=== PATIENT | female | born 1970 | race American Indian/Alaskan Native ===

== ENCOUNTER 2016-10-25 12:43 | Emergency (ER) | payer OTHER ==
[2016-10-25 13:30] LABS: Basophils % (Auto) 1.2 % (0.0-1.8); Eosinophils % (Auto) 3.6 % (0.0-4.3); Hematocrit 39.6 % (30.3-42.9); Hemoglobin 13.2 gm/dl (10.1-14.3); Mean Corpuscular HGB Conc 33 % (30-34); Mean Corpuscular Hemoglobin 28 pg (28-32); Mean Corpuscular Volume 83 fl (79-97); Platelet Count 333 K/mm3 (140-440); Red Blood Count 4.76 M/mm3 (3.65-5.03); Red Cell Distribution Width 14.6 % (13.2-15.2); White Blood Count 5.5 K/mm3 (4.5-11.0)
[2016-10-25 13:34] LABS: INR 0.99 (0.87-1.13)
[2016-10-25 13:35] LABS: Partial Thromboplastin Time 33.8 Sec. (24.2-36.6)
[2016-10-25 13:56] LABS: Anion Gap 16 mmol/L; BUN/Creatinine Ratio 8.75; Blood Urea Nitrogen 7 mg/dL (7-17); Calcium 9.2 mg/dL (8.4-10.2); Carbon Dioxide 27 mmol/L (22-30); Chloride 102.3 mmol/L (98-107); Glucose 95 mg/dL (65-100); Potassium 4.2 mmol/L (3.6-5.0); Sodium 141 mmol/L (137-145)
--- NOTE | 2016-10-25 14:50 | Cat Scan Report ---
CT scan of the contrast: History: Left-sided numbness. Headaches and blurred vision. Findings: Ventricles are normal in size and midline in location. No evidence of acute ischemia, hemorrhage or mass. No extra-axial fluid collection. Normal brainstem and cerebellum. Normal sinuses and mastoid air cells. Impression: No acute intracranial abnormality.
[2016-10-25] MEDS ORDERED: BABY ASPIRIN PO ONE (19:58)
--- NOTE | 2016-10-25 20:27 | Emergency Department Report ---
HPI - General Chief Complaint: Neuro Symptoms/Deficit Time Seen by Provider: 10/25/16 19:42 - HPI HPI: This is a 46-year-old Afro-[place] female presents to the emergency department after waking up with some left-sided numbness to the upper and lower extremities that has been going on intermittently today but is also been going on intermittently over the past 2 months. Shortly after the patient presented to the emergency department, she says that the numbness went away but now she complains of some pain to the left upper shoulder. She denies any headache, vision change, slurred speech, problems with ambulation, chest pain, fever, nausea or vomiting. She denies any past medical history. She denies any history of MO, CVA, PE/DVT. She has not taken anything for symptoms. Presentation. No recent travel or sick contacts at home. She has a new primary care doctor that she is seeing in November. ED Past Medical Hx - Past Medical History Previous Medical History?: No - Surgical History Past Surgical History?: Yes Additional Surgical History: breast reduction - Social History Smoking Status: Never Smoker Substance Use Type: None ED Review of Systems ROS: Stated complaint: LFT SIDE NUMBNESS/HEADACHE Other details as noted in HPI Comment: All other systems reviewed and negative Constitutional: denies: chills, fever Eyes: denies: eye pain, eye discharge, vision change ENT: denies: ear pain, throat pain Respiratory: denies: cough, shortness of breath, wheezing Cardiovascular: denies: chest pain, palpitations Gastrointestinal: denies: abdominal pain, nausea, diarrhea Genitourinary: denies: urgency, dysuria, discharge Musculoskeletal: denies: back pain, joint swelling, arthralgia Skin: denies: rash, lesions Neurological: numbness, paresthesias. denies: weakness, abnormal gait, vertigo Physical Exam - Physical Exam Vital Signs: Vital Signs 10/25/16 12:49 Temperature 98.3 F Pulse Rate 66 Respiratory 18 Rate Blood Pressure 121/74 O2 Sat by Pulse 98 Oximetry Physical Exam: GENERAL: The patient is well-developed well-nourished. HEENT: Normocephalic. Atraumatic. Extraocular motions are intact. Patient has moist mucous membranes. Pupils equal reactive to light bilaterally. No nystagmus. Tongue is midline. NECK: Supple. Trachea is midline. CHEST/LUNGS: Clear to auscultation. There is no respiratory distress noted. HEART/CARDIOVASCULAR: Regular. There is no tachycardia. There is no gallop rub or murmur. ABDOMEN: Abdomen is soft, nontender. Patient has normal bowel sounds. There is no abdominal distention. SKIN: There is no rash. There is no edema. There is no diaphoresis. NEURO: The patient is awake, alert, and oriented. The patient is cooperative. The patient has no focal neurologic deficits. The patient has normal speech and gait. Cranial nerves II through XII grossly intact. No pronator drift. No dysmetria. MUSCULOSKELETAL: There is no deformity. Patient has some mild tenderness to palpation to the superior and posterior left shoulder along the trapezius muscle with some taut musculature. There is no limitation range of motion. There is no evidence of acute injury. Muscle strength 5 out of 5 upper and lower extremity bilaterally. Cap refill less than 2 seconds. Radial pulses +2 over 4 bilaterally. ED Course Vital Signs 10/25/16 12:49 Temperature 98.3 F Pulse Rate 66 Respiratory 18 Rate Blood Pressure 121/74 O2 Sat by Pulse 98 Oximetry ED Medical Decision Making - Lab Data Result diagrams: 10/25/16 13:10 10/25/16 13:10 - EKG Data -: EKG Interpreted by Ri EKG shows normal: sinus rhythm, axis, intervals, QRS complexes, ST-T waves Rate: normal - EKG Data When compared to previous EKG there are: previous EKG unavailable Interpretation: normal EKG - Radiology Data Radiology results: report reviewed CT of the head does not show any acute process including no hemorrhage, mass, shift, diffuse edema or skull fracture. - Medical Decision Making 46-year-old female presents to the emergency department with some transient left -sided numbness to the arm and leg that resolved and now some pain along the trapezius muscle of the left shoulder and neck. Patient has no focal, motor or sensory deficits in her cranial nerves are intact. A stroke scale on this patient right now is 0. Patient's labs were unremarkable including no signs of infection, electrolyte abnormalities, renal insufficiency, glucose abnormalities. Negative troponin. Urine drug screen is negative and the patient is not . CT of the head was done that did not show any bleed, shift, mass or any acute process. EKG does not show any signs of ST elevation MO, ischemia or dysrhythmia. It is possible that the patient had some type of a TIA or that her description of numbness is more like paresthesias. However the patient is not a candidate for TPA as the symptoms have resolved. The symptoms and going on transiently and/or intermittently over the past few months. She's been encouraged to follow-up with her primary care doctor sooner than the marked appointment she has. She is also been given a referral for a local neurologist to follow-up regarding the symptoms. However she will return to the emergency department or call 911 with any return of sustained numbness or any slurred speech, chest pain, neurological deficits or any acute distress. - Differential Diagnosis TIA, brain bleed, vasovagal, paresthesias Critical Care Time: No Critical care attestation.: If time is entered above; I have spent that time in minutes in the direct care of this critically ill patient, excluding procedure time. ED Disposition Clinical Impression: Left sided numbness, Trapezius muscle spasm Disposition: DISCHARGED TO HOME OR SELFCARE Is pt being admited?: No Does the pt Need Aspirin: No Condition: Stable Instructions: Paresthesia (ED), Muscle Spasm (ED) Additional Instructions: Please try and get in to see her primary care doctor earlier than your November appointment. I have also given a referral for a local neurologist, Dr. Coker, to follow-up regarding your intermittent numbness. Return to the emergency department with any worsening of her symptoms, slurred speech, vision change, chest pain, trouble moving or walking, or any acute distress. Referrals: LAVELLE BECERRA MD [Primary Care Provider] - 3-5 Days DUDLEY COKER MD [Staff Physician] - 3-5 Days Time of Disposition: 20:32
[2016-10-25 21:30] VITALS: BP 115/81
== END 2016-10-25 21:30 | disposition home or self-care (01) ==
LOC: ED 12:43
DX: R20.0 Anesthesia of skin (principal); M62.838 Other muscle spasm
CPT/HCPCS: 36415; 70450; 80048; 82962; 84484; 84703; 85025; 85610; 85670; 85730; 93005; 93010